=== PATIENT | female | born 1960 | race Caucasian/White ===

== ENCOUNTER 2016-11-02 05:49 | Inpatient (IN) | payer BC ==
[2016-11-01 09:13] VITALS: BMI 21.7
[~2016-11-02] VITALS: Ht 170.2 cm; Wt 63.6 kg
[2016-11-02] VITALS (37 sets, daily range): BP systolic 108–193; BP diastolic 58–109; PULSE 54–88; RESP 7–31; Ht 170.2 cm; Wt 63.6 kg
[~2016-11-02 05:49] MED LIST: CEFAZOLIN 2 GM/50 ML (PMX) 50 ML IVPB SCH
[2016-11-02] MEDS ORDERED: GELATIN SIZE 100 SPONGE ONE (06:43)
[2016-11-02] MEDS ORDERED: BUPIVACAINE 0.25% (MPF) 10 ML 10 ML VIAL ONE (06:43)
[2016-11-02] MEDS ORDERED: POLYMYXIN/BACITRACIN 1L IRRIG ONE (06:44)
[2016-11-02] MEDS ORDERED: THROMBIN 5000 UNIT VIAL ONE (06:44)
--- NOTE | 2016-11-02 06:49 | HPN ---
Date/Time of Note Date/Time of Note DATE: 11/02/16 TIME: 06:49 Interval H&P Admission Note Pt. seen H&P reviewed: No system changes JULIO ISLAS MD Nov 02, 2016 06:49
[2016-11-02] MEDS ORDERED: ESTR1PAT TD (06:55)
[2016-11-02] MEDS ORDERED: LINA145C PO (06:55)
[2016-11-02] MEDS ORDERED: SUMA100T4 PO (06:56)
[2016-11-02] MEDS ORDERED: PROM25SU40 RC (06:56)
[2016-11-02] MEDS ORDERED: OXYC-431 PO (06:56)
[2016-11-02] MEDS ORDERED: CEFAZOLIN 1 GM INJ ONE (07:00)
[2016-11-02] MEDS ORDERED: ROCURONIUM 50 MG INJ ONE (07:04)
[2016-11-02] MEDS ORDERED: LIDOCAINE 2% (SDV) 5 ML INJ ONE (07:04)
[2016-11-02] MEDS ORDERED: PROPOFOL 20 ML ONE ×2 (07:04→07:35)
[2016-11-02] MEDS ORDERED: SUCCINYLCHOLINE CHLORIDE 100 MG/5 ML SYG IV ONE (07:04)
[2016-11-02] MEDS ORDERED: MIDAZOLAM 1 MG/ML 2 ML INJ ONE (07:05)
[2016-11-02] MEDS ORDERED: ONDANSETRON 4 MG INJ ONE (07:05)
[2016-11-02] MEDS ORDERED: METOCLOPRAMIDE 10 MG INJ ONE (07:05)
[2016-11-02] MEDS ORDERED: DEXAMETHASONE 4 MG/ML 1 ML INJ ONE ×2 (07:05→07:29)
[2016-11-02] MEDS ORDERED: FAMOTIDINE 20 MG INJ ONE (07:05)
[2016-11-02] MEDS ORDERED: EPHEDrine SULFATE 50 MG/5 ML SYG ONE (07:33)
[2016-11-02] MEDS ORDERED: GLYCOPYRROLATE 0.4 MG INJ ONE (07:57)
[2016-11-02] MEDS ORDERED: NEOSTIGMINE 3 MG/3 ML SYRINGE ONE (07:57)
[2016-11-02] MEDS ORDERED: HYDROmorphONE 2 MG/ML SYG ONE (07:57)
--- NOTE | 2016-11-02 08:53 | RADRPT ---
PROCEDURE: XR Lumbar Spine one view. CLINICAL INDICATION: Low back pain. Intraoperative. TECHNIQUE: Prone portable cross-table lateral. COMPARISON: No prior studies are available for comparison. FINDINGS: For the purposes of this report, the last apparent true disc level is considered to be L5-S1. Based on this, the posterior needle markers are present overlying the L4 vertebral body and L5 vertebral body. IMPRESSION: 1. Intraoperative imaging as described above. RPTAT: QQ .Derik Baca MD, MD Date Time Electronically viewed and signed by .Derik Baca MD, MD on 11/02/2016 08:53 .R/
--- NOTE | 2016-11-02 08:54 | RADRPT ---
PROCEDURE: XR Lumbar Spine one view. CLINICAL INDICATION: Low back pain. Intraoperative. TECHNIQUE: Prone portable cross-table lateral. COMPARISON: Prior study done earlier the same day. FINDINGS: For the purposes of this report, the last apparent true disc level is considered to be L5-S1. Based on this, the posterior surgical instrument is present overlying the L4 spinous process level. IMPRESSION: 1. Intraoperative imaging as described above. RPTAT: QQ .Derik Baca MD, MD Date Time Electronically viewed and signed by .Derik Baca MD, MD on 11/02/2016 08:53 .R/
[2016-11-02] MEDS ORDERED: PROCHLORPERAZINE 10 MG INJ IV PRN (09:00)
[2016-11-02] MEDS ORDERED: ONDANSETRON 4 MG INJ IV PRN ×2 (09:00→10:00)
[2016-11-02] MEDS ORDERED: DIPHENHYDRAMINE 50 MG INJ IV PRN (09:00)
[2016-11-02] MEDS ORDERED: MEPERIDINE 25 MG INJ IV PRN (09:00)
[2016-11-02] MEDS ORDERED: HYDROmorphONE (0.2 MG/ML) 10ML SYG IV PRN ×3 (09:00)
[2016-11-02] MEDS ORDERED: FENTAnyl 50 MCG/ML VIAL IV PRN ×3 (09:00)
--- NOTE | 2016-11-02 09:14 | OPR ---
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 Postoperative Diagnosis Same Operation Performed Central decompressive laminectomy at L4 Microdiscectomy L4-5 on the right Baxano foraminal decompression L4 on the right Revision of scar (5 cm) Lateral localizing lumbar radiographs (2) Intraoperative nerve monitoring (1 hour) Surgeon: JULIO ISLAS MD speech therapy assistant: UMESH BAUMAN Anesthesia: general Anesthesiologist: AAKASH FITZPATRICK MD Estimated Blood Loss: 0 - 10 ml's Specimens Spinous process L4 Disc material L4-5 Tubes/Drains 2 medium Hemovac drains Complications: None Pt Condition Post Procedure: stable Disposition: PACU Operative\Procedure Findings At surgery, moderate lateral recess stenosis bilaterally and a small right paracentral disc herniation at L4-5 were confirmed. There was also moderate right foraminal stenosis L4 JUILO ISLAS MD Nov 02, 2016 09:14
[2016-11-02] MEDS ORDERED: TRIMETHOBENZAMIDE 100 MG/ML VIAL IM PRN (09:30)
[2016-11-02] MEDS ORDERED: PROCHLORPERAZINE 10 MG TAB PO PRN (09:30)
[2016-11-02] MEDS ORDERED: NACL 0.9% 3 ML SYG IV SCH (09:30)
[2016-11-02] MEDS ORDERED: DIAZEPAM 5 MG/ML SYG IM PRN (09:30)
[2016-11-02] MEDS ORDERED: AL HYDROX/MG HYDROX/SIMETH 30 ML CUP PO PRN (09:30)
[2016-11-02] MEDS ORDERED: DIPHENHYDRAMINE 50 MG CAP PO PRN (09:30)
[2016-11-02] MEDS ORDERED: NALOXONE (0.4 MG/ML) INJ IV PRN ×2 (09:30→10:00)
[2016-11-02] MEDS ORDERED: BETHANECHOL 25 MG TAB PO PRN (09:30)
[2016-11-02] MEDS ORDERED: ZOLPIDEM 5 MG TAB PO PRN (09:30)
[2016-11-02] MEDS ORDERED: CEPASTAT LOZENGE MT PRN (09:30)
[2016-11-02] MEDS ORDERED: ACETAMINOPHEN 325 MG TAB PO PRN (09:30)
[2016-11-02] MEDS ORDERED: HYDROmorphONE 0.2 MG/ML PCA ONE (09:50)
[2016-11-02] MEDS: HYDROmorphONE 0.2 MG/ML PCA IV SCH ×3 (09:58→17:33)
[2016-11-02] MEDS ORDERED: OXYCODONE/ACETAMINOPHEN (10/325) TAB PO PRN ×2 (10:00→12:00)
[2016-11-02] MEDS ORDERED: HYDROmorphONE 0.2 MG/ML PCA IV SCH ×2 (10:00→12:30)
--- NOTE | 2016-11-02 10:20 | OPR ---
DATE OF OPERATION: 11/02/2016 PREOPERATIVE DIAGNOSIS: Herniated disk L4-5 on the right with stenosis and radiculopathy. POSTOPERATIVE DIAGNOSIS: Herniated disk L4-5 on the right with stenosis and radiculopathy. OPERATION PERFORMED: 1. Central decompressive laminectomy at L4. 2. Microdiskectomy, L4-5 on the right. 3. Baxano transforaminal root decompression L4 on the right. 4. Medial facetectomy and foraminotomy, L4-5 bilaterally. 5. Revision of scar (5 cm). 6. Lateral localized lumbar radiographs (2). SURGEON: Zhang Kaplan MD KEYBOARD OPERATOR: ANTHONY Guerin ANESTHESIA: General endotracheal. ANESTHESIOLOGIST: Mercedes Pierce MD ESTIMATED BLOOD LOSS: 10 mL-none replaced. DRAINS: Two medium Hemovac drains employed. COMPLICATIONS: None. PERTINENT HISTORY AND PHYSICAL: This is a 56-year-old female with persistent back and lower extremi ty complaints, right greater than left, which have been unrelieved by conservative management. She has undergone a number of diagnostic studies including an MRI of the lumbar spine which demonstrated herniation of the L4-5 disk on the right with canal stenosis and foraminal stenosis on the right. Treatment options were discussed with the patient, and she elected to proceed with surgery. OPERATIVE FINDINGS AT SURGERY: A mild central and moderate bilateral lateral recess stenosis was co nfirmed. A small right paracentral herniation at L4-5 was also confirmed as was foraminal narrowing at L4 on the right. The baseline intraoperative nerve monitoring revealed a decrease in the L4 pot ential on the right of 30% and the L4 potential of 30% and the L5 potential of 40%. These both retu rned to normal at the completion of the surgery. OPERATIVE PROCEDURE: With the patient in supine position after satisfactory induction of general en dotracheal anesthesia by Dr. Pierce, the patient was turned to the prone kneeling position onto the [facility] frame. All pressure points were carefully padded. The back was prepped and draped in the [facility] sterile fashion. Athrombic pumps were applied to the legs below the knees to prevent venous sta sis during and after procedure. An indwelling Blackmon catheter was also placed preoperatively to faci litate bladder drainage during and after the procedure. Two spinal needles were placed next to what was felt to be the L4 and L5 spinous processes, lateral roentgenogram was taken which confirmed comfort tomic localization. A 5 cm incision then carried out midline was centered over the spinous process of L5 through skin and subcutaneous tissue to the deep fascia through the previous lumbar scar from her prior surgery. The skin margins were infiltrated with 0.25% Marcaine with epinephrine for posto perative analgesia. Superficial retractors were placed and hemostasis secured with electrocautery. The fascia was incised in midline with a hot knife and bilateral subperiosteal dissection carried o ut at L4-5. Deep retractors were placed and deep hemostasis secured with electrocautery. A second intraoperative radiograph was taken with Davonte clamp placed in what was felt to be the spinous proc ess of L4. This was confirmed with second x-ray. A central decompressive laminectomy at L4 was the n carried out using a Solomon right-angle bone rongeur, Leksell rongeur, Kerrison punches and curett es. Ligamentum flavum was excised with sharp dissection. The operating microscope then moved into place. Medial facetectomy and foraminotomy at L4-5 bilaterally was carried out will small hand oste otome, mallet, Kerrison punches and curettes. The L5 root on the right was mobilized medially and p rotected with Gerry nerve retractor using microdissection technique. This revealed a herniation of the L4-5 disk. A 15 blade knife used to cut a rectangular window in the annulus and posterior lo ngitudinal ligament and multiple degenerative disk fragments were harvested with pituitary rongeurs and sent to the laboratory for pathologic study. Additional fragments were harvested using Chapito curettes. A thorough search of the floor of the canal was made with an arthroscopic probe. No berenice tional fragments were encountered. The epidural hemostasis was secured with bipolar electrocautery on low setting. The anesthesiologist was asked to perform a Valsalva maneuver at 40 mmHg and no spi nal fluid leak was noted. At this point, there was still some distal foraminal stenosis at L4 on th e right, and the Baxano instrumentation was brought onto the field. The Ipsi probe was placed into the foramen, and the guidewire passed in the usual fashion. The neuro probe was then used to isolat e the exiting L4 nerve root. With this having been assured, a 7.5 mm Baxano rasp was inserted into the foramen and multiple reciprocations carried out to enlarge the posterior aspect of the foramen. The instrumentation was withdrawn. The foramen was flushed with 20 mL of irrigating solution and f urther hemostasis secured with bipolar electrocautery on low setting. The anesthesiologist was cinthya camara to perform a second Valsalva maneuver at 40 mmHg and no spinal fluid leak was noted. The wound wa s then closed in layers over 2 medium Hemovac drains, one below the fascia and one above the fascia using #1 Vicryl [id number] approximating sutures in deep paralumbar musculature and deep fascia of the back, 2-0 Vicryl subcutaneous approximating sutures in subcu tissue, and a 4-0 Vicryl subcut icular cosmetic closing suture on the skin. Dermabond and sterile compressive dressings were applie d. Patient having tolerated procedure well was then turned to the supine position onto her bed and extubated by Dr. Pierce. She was transported to the recovery room in satisfactory condition. At the conclusion of the procedure, sponge, instrument, and needle counts were all correct. NEED FOR STAINED GLASS GLAZIER HELPER: During this spinal surgical procedure, my field research assistant was used to retrac t and protect the spinal nerves and dural sac. My field research assistant also employed the suction catheters to e vacuate blood from the surgical field to improve visualization of the neural structures. The assista nt was medically necessary to facilitate the completion of the surgery in a safe and expeditious man ner. [facility] regulations, as well as hospital bylaws, preclude the use of non-licensed [facility] care personnel such as operating room technicians, to perform these functions. Throughout the procedure, neural monitoring was carried out by [email or web address] including EMG, SSEP and MEP monitoring of the L3, L4, L5 and S1 nerve roots bilaterally along with s sho cord potentials. These were interpreted by neurologist employed by [employer]. Dictated By: ZHANG DESAI/KIM Conf#: [id number] DID#: [id number] CC: RITU ACKERMAN MD;*EndCC*
[2016-11-02] MEDS: DEXTROSE 5%-0.45% NACL 1,000 ML IV SCH ×2 (11:38→22:17)
[2016-11-02 11:39] LABS: ADD UMIC YES; URINE BILIRUBIN (Dip) NEGATIVE (NEGATIVE); URINE BLOOD (Dip) 3+ (NEGATIVE); URINE COLOR LT. YELLOW (YELLOW); URINE GLUCOSE (Dip) NEGATIVE (NEGATIVE); URINE KETONES (Dip) NEGATIVE (NEGATIVE); URINE LEUKOCYTE ESTERASE (Dip) NEGATIVE (NEGATIVE); URINE NITRITE (Dip) NEGATIVE (NEGATIVE); URINE TOTAL PROTEIN (Dip) NEGATIVE (NEGATIVE); URINE UROBILINOGEN (Dip) 0.2 E.U./dL (0.1-1.0)
[2016-11-02] MEDS: DIAZEPAM 5 MG TAB PO PRN ×2 (12:10→20:52)
[2016-11-02] MEDS: CEFAZOLIN 1 GM/50 ML (PMX) 50 ML IVPB SCH ×2 (12:10→17:27)
[2016-11-02] MEDS: HYDROmorphONE 1 MG/ML SYG IV PRN ×3 (14:14→19:22)
--- NOTE | 2016-11-02 14:21 | CONS ---
DATE OF ADMISSION: 11/02/2016 DATE OF CONSULTATION: TYPE OF CONSULTATION: Medical. Thank you, Dr. Kaplan, for asking me to participate in medical management of this patient. REASON FOR CONSULTATION: To manage the patient's migraine headaches, insomnia, chronic pain syndro me and chronic constipation. HISTORY OF PRESENT ILLNESS: This 56-year-old female is now postop a lumbar spine surgery by Dr. Edita rudolph. The patient had a herniated disk at L4 to L5 on the right with stenosis and radiculopathy. Today, Dr. Kaplan performed a central decompressive laminectomy at L4, microdiskectomy at L4 to L5 on the right. She is now on the orthopedic floor. She is awake and alert. She says that she does have some lower back pain, but she is able to stand. PAST MEDICAL HISTORY: Remarkable for migraine headaches, insomnia, lumbar disk herniation and chron ic pain, chronic constipation. PAST MEDICAL HISTORY: Tonsillectomy, hysterectomy, shoulder surgery, back surgery at L2, knee surge ry, ankle surgery, breast implant removal. CURRENT MEDICATIONS: Include: 1. Alprazolam on 0.5 mg 2 or 3 times a day as needed. 2. Estradiol. 2. Vivelle dot patch twice a week later. 4. Linzess 145 mcg a day. 5. Oxycodone/acetaminophen 10/325 p.r.n. for pain. 6. Promethazine 25 mg suppositories p.r.n. nausea or vomiting. 7. Sumatriptan 100 mg once or twice a day as needed for migraine headaches. ALLERGIES: CEFTAROLINE, CLARITHROMYCIN, DOXYCYCLINE, PENICILLINS, SULFAMETHOXAZOLE, TRIMETHOPRIM AN D VANCOMYCIN. FAMILY HISTORY: Includes diabetes in her mother, hyperlipidemia in her mother, hypertension in her mother and leukemia in her father. PHYSICAL EXAMINATION: GENERAL: At this time reveals a well-developed female in no apparent distress. VITAL SIGNS: Temperature 97.9, pulse is 72, respirations 18, blood pressure 123/69, O2 saturation 1 00% on room air. HEENT: Head normocephalic. Eyes: Extraocular muscles intact. NOSE AND MOUTH: Normal. NECK: Supple. No neck vein distention. LUNGS: Clear to auscultation. HEART: Regular rhythm. No murmurs, gallops or rubs. ABDOMEN: Soft, nontender. EXTREMITIES: No peripheral edema. IMPRESSION: This patient is stable after surgery today. Her blood pressure is normal. She overall seems to be doing well. I will manage the patient's migraine headaches, insomnia, chronic pain syn drome and constipation PLAN: 1. Resume some routine medications. 2. Check labs in the morning. 3. Postop lumbar spine surgery protocol. 4. I will follow the patient along with you medically. Dictated By: RITU ACKERMAN MD, ND/KIM Conf#: [id number] DID#: [id number]
[2016-11-02] MEDS: ONDANSETRON 4 MG INJ IV PRN (17:34)
[2016-11-02] MEDS: RANITIDINE 150 MG TAB PO SCH (20:16)
[2016-11-02] MEDS: SUMATRIPTAN 50 MG TAB PO PRN (22:12)
[2016-11-03] MEDS: ONDANSETRON 4 MG INJ IV PRN (00:02)
[2016-11-03] MEDS: DIPHENHYDRAMINE 50 MG INJ IV PRN ×2 (00:03→05:29)
[2016-11-03] MEDS: CEFAZOLIN 1 GM/50 ML (PMX) 50 ML IVPB SCH ×2 (00:07→05:29)
[2016-11-03] MEDS: HYDROmorphONE 1 MG/ML SYG IV PRN ×4 (00:17→13:28)
[2016-11-03] MEDS: DIAZEPAM 5 MG TAB PO PRN ×2 (03:43→11:37)
[2016-11-03 05:12] LABS: ADD SCAN DIFF NO
[2016-11-03 05:19] LABS: ALBUMIN 3.3 g/dl (3.3-4.9); ALBUMIN/GLOBULIN RATIO 1.43; BASOPHILS % 0.2 % (0.0-2.0); BILIRUBIN,INDIRECT 0.3 mg/dl (0-1.1); BILIRUBIN,TOTAL 0.3 mg/dl (0.2-1.3); CALCIUM 8.9 mg/dl (8.4-10.2); CREATININE 0.62 mg/dl (0.44-1.00); EOSINOPHILS % 0.1 % (0.0-7.0); HEMATOCRIT 33.6 % (37.0-47.0); LYMPHOCYTES # 2.1 10^3/ul (0.8-2.9); LYMPHOCYTES % 21.6 % (15.0-51.0); MEAN CORPUSCULAR HEMOGLOBIN 30.4 pg (29.0-33.0); MEAN CORPUSCULAR HGB CONC 32.7 g/dl (32.0-37.0); MEAN CORPUSCULAR VOLUME 92.8 fl (82.0-101.0); MEAN PLATELET VOLUME 11.9 fl (7.4-10.4); MONOCYTE # 0.9 10^3/ul (0.3-0.9); MONOCYTES % 9.3 % (0.0-11.0); NEUTROPHIL # 6.8 10^3/ul (1.6-7.5); NEUTROPHILS % 68.5 % (39.0-77.0); PLATELET COUNT 177 10^3/UL (140-415); POTASSIUM 4.1 mmol/L (3.5-5.1); RED BLOOD COUNT 3.62 10^6/ul (4.20-5.40); RED CELL DISTRIBUTION WIDTH 12.4 % (11.5-14.5); TOTAL PROTEIN 5.6 g/dl (6.1-8.1); WHITE BLOOD COUNT 9.9 10^3/ul (4.8-10.8)
[2016-11-03] MEDS: HYDROmorphONE 0.2 MG/ML PCA IV SCH (05:40)
--- NOTE | 2016-11-03 07:11 | PN ---
Date/Time of Note Date/Time of Note DATE: 11/03/16 TIME: 07:10 Assessment/Plan Lines/Catheters IV Catheter Type (from Nrs): Saline Lock Blackmon in Place (from Nrsg): Yes Subjective 24 Hr Interval Summary Patient is postop day #1 from lumbar decompression discectomy. She is alert and oriented. Neurovascular structures are intact distally. Vital signs are stable. Hemoglobin this morning is 11. Hemovac drainage is 50 cc overnight and this will be monitored. Plan for today is to ambulate with physical therapy. She may be discharged later today if her drain is ready to be removed , and she is cleared by physical therapy and internal medicine. Exam/Review of Systems Vital Signs Vitals Vital Signs Date Time Temp Pulse Resp B/P Pulse Ox O2 Delivery O2 Flow Rate FiO2 11/03/16 05:42 18 11/02/16 19:59 98.5 65 108/58 98 11/02/16 19:22 Nasal Cannula 2.0 Intake and Output 11/02/16 11/02/16 11/03/16 15:00 23:00 07:00 Intake Total 1550 ml 1410 ml 1150 ml Output Total 450 ml 870 ml 1150 ml Balance 1100 ml 540 ml 0 ml Results Result Diagram: 11/03/16 0450 11/03/16 0450 BREANNE KHOURY Nov 03, 2016 07:11
[2016-11-03] MEDS: DEXTROSE 5%-0.45% NACL 1,000 ML IV SCH (07:59)
[2016-11-03 08:00] VITALS: BP 94/51; RESP 16
[2016-11-03] MEDS ORDERED: BETHANECHOL 25 MG TAB PO PRN (08:00)
[2016-11-03] MEDS ORDERED: NON-FORMULARY/PATIENT OWN MED (Linaclotide (Linzess) 145 MCG) PO SCH (09:00)
[2016-11-03] MEDS ORDERED: DOCUSATE SODIUM 100 MG CAP PO SCH (09:00)
[2016-11-03] MEDS ORDERED: ASCORBIC ACID 500 MG TAB PO SCH (09:00)
[2016-11-03] MEDS ORDERED: LINZESS IS NON FORMULARY...PLEASE CONSIDER AN ORDER TO USE PATIENT'S OWN MED XX SCH (09:30)
[2016-11-03] MEDS: FERROUS SULFATE (EC) 325 MG TAB PO SCH ×2 (09:47→13:31)
[2016-11-03] MEDS: RANITIDINE 150 MG TAB PO SCH (09:47)
--- NOTE | 2016-11-03 11:06 | CONS ---
Date/Time of Note Date/Time of Note DATE: 11/03/16 TIME: 11:05 Assessment/Plan Assessment/Plan Chief Complaint/Hosp Course 1. She is 1 day postop lumbar spine surgery. She is up and around and doing well. She still has a drain in place. If the drain is removed and she is discharged by orthopedic surgery then she can be discharged from my standpoint. Problems: Consultation Date/Type/Reason Admit Date/Time Nov 02, 2016 at 05:49 Initial Consult Date 24 HR Interval Summary Free Text/Dictation She is doing well today. She is up and around. She still has a drain in place in her back. Constitutional: improved, no complaints Exam/Review of Systems Vital Signs Vitals Vital Signs Date Time Temp Pulse Resp B/P Pulse Ox O2 Delivery O2 Flow Rate FiO2 11/03/16 09:00 18 11/03/16 08:00 97.8 65 94/51 93 11/02/16 19:22 Nasal Cannula 2.0 Intake and Output 11/02/16 11/02/16 11/03/16 15:00 23:00 07:00 Intake Total 1550 ml 1410 ml 1150 ml Output Total 450 ml 870 ml 1150 ml Balance 1100 ml 540 ml 0 ml Exam Constitutional: alert, oriented, well developed Respiratory: clear to auscultation, normal air movement Cardiovascular: regular rate and rhythm Musculoskeletal: nl extremities to inspection Results Result Diagram: 11/03/16 0450 11/03/16 0450 Results 24 hrs Laboratory Tests Test 11/03/16 04:50 White Blood Count 9.9 Red Blood Count 3.62 L Hemoglobin 11.0 L Hematocrit 33.6 L Mean Corpuscular Volume 92.8 Mean Corpuscular Hemoglobin 30.4 Mean Corpuscular Hemoglobin Concent 32.7 Red Cell Distribution Width 12.4 Platelet Count 177 Mean Platelet Volume 11.9 H Neutrophils % 68.5 Lymphocytes % 21.6 Monocytes % 9.3 Eosinophils % 0.1 Basophils % 0.2 Nucleated Red Blood Cells % 0.0 Neutrophils # 6.8 Lymphocytes # 2.1 Monocytes # 0.9 Eosinophils # 0.0 Basophils # 0.0 Nucleated Red Blood Cells # 0.0 Sodium Level 138 Potassium Level 4.1 Chloride Level 103 Carbon Dioxide Level 32 H Anion Gap 7 L Blood Urea Nitrogen 7 Creatinine 0.62 Glucose Level 127 Calcium Level 8.9 Total Bilirubin 0.3 Direct Bilirubin 0.00 Indirect Bilirubin 0.3 Aspartate Amino Transf (AST/SGOT) 31 Alanine Aminotransferase (ALT/SGPT) 31 Alkaline Phosphatase 30 L Total Protein 5.6 L Albumin 3.3 Globulin 2.30 Albumin/Globulin Ratio 1.43 Medications Medications Current Medications Dextrose/Sodium Chloride (D5-1/2ns) 1,000 ml @ 100 mls/hr Q10H IV Last administered on 11/02/16 22:17; Admin Dose 100 MLS/HR; Start 11/02/16 at 09:03 Zolpidem Tartrate (Ambien) 5 mg HS PRN PO INSOMNIA; Start 11/02/16 at 09:30 Prochlorperazine (Compazine) 10 mg Q4H PRN PO NAUSEA AND/OR VOMITING; Start at 09:30 Trimethobenzamide HCl (Tigan) 200 mg Q4H PRN IM NAUSEA AND/OR VOMITING Last administered on 11/02/16 20:46; Admin Dose 200 MG; Start 11/02/16 at 09:30 Ondansetron HCl (Zofran Inj) 4 mg Q6H PRN IV NAUSEA AND/OR VOMITING Last administered on 11/03/16 00:02; Admin Dose 4 MG; Start 11/02/16 at 09:30 Al Hydrox/Mg Hydrox/Simethicone (Mag-Al Plus) 15 ml Q4H PRN PO CONSTIPATION; Start 11/02/16 at 09:30 Docusate Sodium (Colace) 100 mg BID PO Last administered on 11/03/16 09:47; Admin Dose 100 MG; Start 11/03/16 at 09:00 Acetaminophen (Tylenol Tab) 650 mg Q4H PRN PO TEMP GREATER THAN 101F OR JUAN Last administered on 11/03/16 01:22; Admin Dose 650 MG; Start 11/02/16 at 09:30 Ascorbic Acid (Vitamin C) 1,000 mg BID PO Last administered on 11/03/16 09:47 ; Admin Dose 1,000 MG; Start 11/03/16 at 09:00 Ferrous Sulfate (Ferrous Sulfate (Ec)) 325 mg TID PO Last administered on 09:47; Admin Dose 325 MG; Start 11/03/16 at 09:00 Ranitidine HCl (Zantac) 150 mg BID PO Last administered on 11/03/16 09:47; Admin Dose 150 MG; Start 11/02/16 at 21:00 Diazepam (Valium) 5 mg Q4H PRN PO MUSCLE SPASMS Last administered on 11/03/16 03:43; Admin Dose 5 MG; Start 11/02/16 at 09:30 Diazepam (Valium) 5 mg Q4H PRN IM MUSCLE SPASMS; Start 11/02/16 at 09:30 Phenol (Cepastat Lozenge) 1 lozenge PRN PRN MT SORE THROAT Last administered on 11/02/16 12:10; Admin Dose 1 LOZENGE; Start 11/02/16 at 09:30 Diphenhydramine HCl (Benadryl) 50 mg Q6H PRN PO PRURITUS; Start 11/02/16 at 09: 30 Naloxone HCl (Narcan) 0.2 mg Q2M PRN IV RR 8 BREATHS/MIN OR LESS; Start at 09:30 Naloxone HCl (Narcan) 0.2 mg PRN PRN IV DECREASED REPIRATORY RATE; Start at 10:00 Ondansetron HCl (Zofran Inj) 4 mg Q6H PRN IV NAUSEA AND/OR VOMITING; Start at 10:00 Diphenhydramine HCl (Benadryl) 12.5 mg Q6H PRN IV ITCHING Last administered on 11/03/16 05:29; Admin Dose 12.5 MG; Start 11/02/16 at 10:00 Hydromorphone HCl (Dilaudid RETAIL MANAGEMENT KEYHOLDER) Q4PCA IV Last administered on 11/03/16 05:40 ; Admin Dose 6 MG; Start 11/02/16 at 12:30 Hydromorphone HCl (Dilaudid) 1 mg Q2H PRN IV PAIN Last administered on 08:00; Admin Dose 1 MG; Start 11/02/16 at 13:00 Sumatriptan Succinate (Imitrex) 100 mg BID PRN PO MIGRAINE HEADACHE Last administered on 11/02/16 22:12; Admin Dose 100 MG; Start 11/02/16 at 14:00 Miscellaneous Information 145 mcg DAILY PO ; Start 11/03/16 at 09:00; Status UNV Bethanechol Chloride (Urecholine) 25 mg PRN PRN PO UNABLE TO VOID; Start at 08:00 Miscellaneous Information (*Order Clarification Bulletin) LINZESS IS NON FORMULARY...PLEASE CONSIDER AN OR... Q8H XX Last administered on 11/03/16 09: 51; Admin Dose 1 EA; Start 11/03/16 at 09:30 RITU ACKERMAN MD Nov 03, 2016 11:06
[2016-11-03 11:10] LABS: ADD UMIC YES; URINE BILIRUBIN (Dip) NEGATIVE (NEGATIVE); URINE BLOOD (Dip) 3+ (NEGATIVE); URINE COLOR LT. YELLOW (YELLOW); URINE GLUCOSE (Dip) NEGATIVE (NEGATIVE); URINE KETONES (Dip) NEGATIVE (NEGATIVE); URINE LEUKOCYTE ESTERASE (Dip) 1+ (NEGATIVE); URINE NITRITE (Dip) NEGATIVE (NEGATIVE); URINE TOTAL PROTEIN (Dip) NEGATIVE (NEGATIVE); URINE UROBILINOGEN (Dip) 0.2 E.U./dL (0.1-1.0)
[2016-11-03] MEDS ORDERED: OXYCODONE/ACETAMINOPHEN (10/325) TAB PO PRN (11:30)
[2016-11-03] MEDS: SUMATRIPTAN 50 MG TAB PO PRN (11:38)
[2016-11-03 12:56] LABS: BACTERIA,URINE FEW
--- NOTE | 2016-11-03 13:47 | PDOCDIS ---
Discharge Instructions CONDITION Patient Condition: Good HOME CARE INSTRUCTIONS: Diet Instructions: RegularSpecial Diet: CLEARS ACTIVITY: Activity Restrictions: Slowly Increase Activity Rest between Activity Avoid heavy lifting Do not Drive Do not operate Power Tool Avoid Heavy Housework Weight Bearing Bathing Restrictions: Shower (May shower 5 days after surgery) FOLLOW UP/APPOINTMENTS Appointments Dr Kaplan . RITU ACKERMAN MD Nov 03, 2016 13:47
== END 2016-11-03 14:10 | disposition home or self-care (01) | DRG 520 ==
LOC: REC 05:49 → EDSTATUS 07:00 → MS1 10:50
PROVIDERS: ADMIT Orthopaedic Surgery; ATTEND Orthopaedic Surgery
PROC: 0SB20ZZ Excision of Lumbar Vertebral Disc, Open Approach (ICD-10-PCS; 2016-11-02)
PROC: 01NB0ZZ Release Lumbar Nerve, Open Approach (ICD-10-PCS; principal; 2016-11-02 07:00)
DX: M51.16 Intervertebral disc disorders with radiculopathy, lumbar region (principal); G89.4 Chronic pain syndrome; M48.06 Spinal stenosis, lumbar region; G43.909 Migraine, unspecified, not intractable, without status migrainosus; G47.00 Insomnia, unspecified; K59.09 Other constipation
CPT/HCPCS: 72020; 80053; 81001; 81003; 85025; 86850; 86900; 86901; 86920; 87086; 97116; 97162; 97530; J0330; J0690; J1100; J1170; J1200; J2250; J2405; J2710; J2765; J3010; J3250; J7042